=== PATIENT | male | born 1950 | race Caucasian/White ===

== ENCOUNTER 2017-04-17 15:47 | Emergency (ER) | payer MEDICARE, OTHER ==
[~2017-04-17] VITALS: Ht 177.8 cm; Wt 96.1 kg
[2017-04-17 18:55] VITALS: BP 144/84
== END 2017-04-17 19:27 | disposition home or self-care (01) ==
LOC: ED 19:00
DX: I82.4Z2 Acute embolism and thrombosis of unspecified deep veins of left distal lower extremity (principal); Z87.891 Personal history of nicotine dependence
CPT/HCPCS: 36415; 80047; 99285

== ENCOUNTER → 2018-02-13 | Outpatient (CLI) | payer MEDICARE, OTHER | END | disposition home or self-care (01) | LOC: CFH 15:04 | PROVIDERS: ATTEND Nurse Practitioner Primary Care | DX: M19.042 Primary osteoarthritis, left hand (principal) ==